=== PATIENT | male | born 1945 | race Caucasian/White ===

== ENCOUNTER 2023-01-12 23:35 | Inpatient (IN) | payer OTHER ==
[2023-01-12] MEDS ORDERED: RAPID SEQUENCE INTUBATION KIT NR ONE (23:45)
[2023-01-13] MEDS ORDERED: PROPOFOL 1,000,000 MCG/100 ML VIAL IVPUSH SCH (00:15)
[2023-01-13] MEDS ORDERED: PROPOFOL 20 ML ONE (00:15)
[2023-01-13] MEDS ORDERED: SODIUM CHLORIDE 0.9% 1000 ML INFUS.BAG IV ONE (00:22)
[2023-01-13] MEDS ORDERED: ETOMIDATE 20 MG/10 ML VIAL IVPUSH ONE (00:27)
[2023-01-13] MEDS ORDERED: ADENOSINE 6 MG/2 ML VIAL IVPUSH ONE ×2 (00:27)
[2023-01-13] MEDS ORDERED: ROCURONIUM BROMIDE 50 MG/5 ML VIAL IV ONE (00:28)
[2023-01-13] MEDS ORDERED: PROPOFOL 200 MG/20 ML VIAL IVPUSH ONE (00:28)
[2023-01-13 00:34] LABS: ARTERIAL BLD GAS O2 SATURATION 99.3 % (95-98); ARTERIAL BLOOD GAS BASE EXCESS -7.6 mmol/L (-2-2); ARTERIAL BLOOD GAS PO2 223.7 mmHg (80-100); ARTERIAL BLOOD GAS pH 7.206 (7.350-7.450)
[2023-01-13] MEDS ORDERED: VANCOMYCIN 1 GM in D5W (PRE-DOCKED) 1,000 MG/250 ML IVPB ONE (00:40)
[2023-01-13] MEDS ORDERED: PIPERACILLIN/TAZOB 4.5 GM 4.5 GM in DEXTROSE 5%-WATER 100 ML IVPB ONE (00:40)
[2023-01-13 00:50] LABS: BASO % 0.2 % (0-2.0); HEMATOCRIT 29.2 % (35.4-49); LYMPH % 4.5 % (8-40); MCH 24.9 pg (25.7-33.7); MCHC 30.9 g/dl (32.0-35.9); MEAN CELL VOLUME 80.7 fl (80-96); MEAN PLT VOLUME 8.6 fl (7.5-11.1); MONO % 8.5 % (3.8-10.2); NEUT % 86.8 % (42.8-82.8); PLATELET COUNT 333 10^3/uL (134-434); RBC 3.62 M/mm3 (4.00-5.60); RDW 16.3 % (11.9-15.9); WHITE BLOOD COUNT 22.3 K/mm3 (4.0-10.0)
[2023-01-13 00:57] LABS: INR 1.3 (0.83-1.09)
[2023-01-13 01:00] LABS: ACTIVATED PTT 30.2 SECONDS (25.2-36.5)
[2023-01-13 01:17] LABS: BLOOD UREA NITROGEN 54.6 mg/dL (7-18); CALCIUM 9.4 mg/dL (8.5-10.1)
[2023-01-13] MEDS ORDERED: PIPERACILLIN/TAZOB 4.5 GM 4.5 GM/100 ML BAG IVPB ONE (01:18)
[2023-01-13] MEDS ORDERED: VANCOMYCIN/WATER FOR INJ (PEG) 1,000 MG/200 ML BAG IVPB ONE (01:18)
[2023-01-13 01:20] LABS: CREATININE 1.4 mg/dL (0.55-1.3)
[2023-01-13 01:23] LABS: BILIRUBIN,TOTAL 0.5 mg/dL (0.2-1); TOT PROT 7.4 g/dl (6.4-8.2)
[2023-01-13 01:46] LABS: LACTIC ACID 10.7 mmol/L (0.4-2.0)
[2023-01-13 02:19] LABS: EPI CELLS 5 /uL (0-25.1); HYALINE CASTS 3 /uL (0-3.1); URINE APPEARANCE CLOUDY; URINE BACTERIA 1 /uL (0-1359); URINE BILIRUBIN NEGATIVE (NEGATIVE); URINE COLOR YELLOW; URINE GLUCOSE (UA) NEGATIVE (NEGATIVE); URINE KETONE TRACE (NEGATIVE); URINE LEUK ESTERASE NEGATIVE (NEGATIVE); URINE NITRITE NEGATIVE (NEGATIVE); URINE PROTEIN 1+ (NEGATIVE); URINE RBC 15 /uL (0-23.9); URINE UROBILINOGEN 0.2 mg/dL (0.2-1.0); URINE WBC 10 /uL (0-25.8)
[2023-01-13] MEDS ORDERED: SODIUM CHLORIDE 0.9% 500 ML INFUS.BAG IV ONE (02:50)
[2023-01-13] MEDS ORDERED: SODIUM CHLORIDE 2,313 ML IV ONE (02:51)
[2023-01-13] MEDS ORDERED: ALBUTEROL SO4 2.5/IPRATROPIUM 0.5 INH SOL 3 ML VIAL.NEB. NEB PRN (03:06)
[2023-01-13 03:40] LABS: ARTERIAL BLD GAS O2 SATURATION 97.4 % (95-98); ARTERIAL BLOOD GAS BASE EXCESS -1.2 mmol/L (-2-2); ARTERIAL BLOOD GAS PO2 95.6 mmHg (80-100); ARTERIAL BLOOD GAS pH 7.406 (7.350-7.450)
[2023-01-13 03:47] LABS: ALLENS TEST POSITIVE
[2023-01-13 03:50] LABS: VENT RATE 14
[2023-01-13] MEDS: INSULIN SLIDING SCALE (NOVOLOG) 1 VIAL SQ SCH ×4 (04:05→21:22)
[2023-01-13] MEDS ORDERED: NOREPINEPHRINE BITARTRATE/D5W 8 MG/250 ML BAG IVPB SCH (04:15)
[2023-01-13] MEDS ORDERED: NOREPINEPHRINE BITARTRATE 16,000 MCG in DEXTROSE 5%-WATER - 500 ML IVPB SCH (04:26)
[2023-01-13] MEDS ORDERED: NOREPINEPHRINE 0.9 % NACL 8 MG/250 ML BAG IVPB SCH (04:29)
[2023-01-13 04:36] LABS: OVALOCYTE 2+
[2023-01-13 05:54] LABS: HEMOGLOBIN 7.2 GM/dL (11.7-16.9); MCH 25.8 pg (25.7-33.7); MCHC 31.4 g/dl (32.0-35.9); MEAN CELL VOLUME 82.2 fl (80-96); PLATELET COUNT 242 10^3/uL (134-434); RBC 2.79 M/mm3 (4.00-5.60); RDW 16.3 % (11.9-15.9)
[2023-01-13 06:12] LABS: CHLORIDE 102 mmol/L (98-107); SODIUM 136 mmol/L (136-145)
[2023-01-13 06:15] LABS: ALBUMIN 1.6 g/dl (3.4-5.0); ANION GAP 11 MMOL/L (8-16); BLOOD UREA NITROGEN 49.6 mg/dL (7-18); CALCIUM 8.1 mg/dL (8.5-10.1); CO2 24 mmol/L (21-32); GLUCOSE,RANDOM 112 mg/dL (74-106); MAGNESIUM 2.3 mg/dL (1.8-2.4)
[2023-01-13 06:17] LABS: SGPT/ALT 22 U/L (13-61)
[2023-01-13 06:18] LABS: SGOT/AST 51 U/L (15-37)
[2023-01-13 06:19] LABS: TOT PROT 6.1 g/dl (6.4-8.2)
[2023-01-13 06:20] LABS: ALK PHOS 114 U/L (45-117)
[2023-01-13 06:23] LABS: BILIRUBIN,TOTAL 0.7 mg/dL (0.2-1)
[2023-01-13] MEDS: GABAPENTIN 250 MG/5 ML ORAL SOLUTION, 470 ML BOTTLE PO SCH ×3 (06:26→23:23)
[2023-01-13 06:47] LABS: LACTIC ACID 5.3 mmol/L (0.4-2.0)
[2023-01-13] MEDS ORDERED: SODIUM CHLORIDE 1,000 ML IV SCH (08:45)
[2023-01-13] MEDS: ENOXAPARIN NA (PORCINE) 40 MG/0.4 ML DISP.SYRIN SQ SCH (09:34)
[2023-01-13] MEDS: SODIUM HYPOCHLORITE 0.25%- 473 ML BULK BOTTLE TP SCH (09:35)
[2023-01-13] MEDS: COLLAGENASE CLOSTRIDIUM HIST. 30 GRAMS TUBE TP SCH (09:36)
[2023-01-13] MEDS ORDERED: PIPERACILLIN/TAZOB 3.375 GM 3.375 GM in DEXTROSE 5%-WATER - 50 ML IVPB SCH ×2 (10:00→18:00)
[2023-01-13] MEDS ORDERED: PNEUMOC 20-VAL CONJ-DIP CRM/PF 0.5 ML SYRINGE IM ONE (10:00)
[2023-01-13] MEDS ORDERED: SODIUM CHLORIDE 500 ML IV STA (10:39)
[2023-01-13] MEDS ORDERED: HYDROmorphone HCl 2 MG/ML VIAL IVPUSH ONE (10:40)
[2023-01-13 10:44] LABS: ANISOCYTOSIS 0; HELMET CELLS 0; HOWELL-JOLLY BODIES 0; MACROCYTOSIS 0; OVALOCYTE 0; ROULEAU 0; SICKELED CELLS 0; TARGET CELLS 0; TEAR DROP CELLS 0; TOXIC GRANULATION 0
[2023-01-13] MEDS: MUPIROCIN 2% TOPICAL OINTMENT FOR DECOLONIZATION NS SCH ×2 (11:00→21:20)
[2023-01-13] MEDS: MEROPENEM 1 GM in DEXTROSE 5%-WATER 100 ML IVPB SCH ×2 (13:18→21:20)
[2023-01-13 13:23] LABS: IRON SERUM 13 ug/dL (50-175); TOTAL IRON BINDING CAPACITY 136 ug/dL (250-450)
[2023-01-13] MEDS ORDERED: ACETAMINOPHEN 1000 MG/100 ML BAG IVPB ONE (15:13)
[2023-01-13] MEDS ORDERED: DEXTROSE 50%-WATER 25 GM/50 ML DISP.SYRIN IVPUSH ONE (16:08)
[2023-01-13] MEDS ORDERED: DEXTROSE 50%-WATER 25 GM/50 ML DISP.SYRIN ONE (16:12)
[2023-01-13] MEDS: DEXTROSE 5%-NORMAL SALINE 1,000 ML IV SCH (16:32)
[2023-01-13 16:58] LABS: HEMATOCRIT 22.7 % (35.4-49); MCH 24.7 pg (25.7-33.7); MEAN CELL VOLUME 79.7 fl (80-96); MEAN PLT VOLUME 8.5 fl (7.5-11.1); PLATELET COUNT 222 10^3/uL (134-434); RBC 2.85 M/mm3 (4.00-5.60); RDW 16.2 % (11.9-15.9); WHITE BLOOD COUNT 13.8 K/mm3 (4.0-10.0)
[2023-01-13] MEDS: ACETAMINOPHEN 325 MG TABLET (FP) PO PRN (21:21)
[2023-01-13] MEDS: oxyCODONE HCL 5 MG TABLET PO PRN (21:21)
[2023-01-13] MEDS ORDERED: CHLORHEXIDINE GLUCONATE 4% CLEANSER FOR DECOLONIZATION TP SCH (22:00)
[2023-01-14] MEDS: INSULIN SLIDING SCALE (NOVOLOG) 1 VIAL SQ SCH ×4 (06:26→22:46)
[2023-01-14] MEDS: MEROPENEM 1 GM in DEXTROSE 5%-WATER 100 ML IVPB SCH ×3 (06:27→22:34)
[2023-01-14] MEDS: GABAPENTIN 250 MG/5 ML ORAL SOLUTION, 470 ML BOTTLE PO SCH ×3 (06:27→22:42)
[2023-01-14 09:00] LABS: HEMATOCRIT 24.4 % (35.4-49); HEMOGLOBIN 7.8 GM/dL (11.7-16.9); MCH 25.9 pg (25.7-33.7); MEAN PLT VOLUME 9.4 fl (7.5-11.1); PLATELET COUNT 245 10^3/uL (134-434); RBC 3.01 M/mm3 (4.00-5.60); RDW 16.3 % (11.9-15.9); WHITE BLOOD COUNT 15.9 K/mm3 (4.0-10.0)
[2023-01-14 09:22] LABS: CALCIUM 8.5 mg/dL (8.5-10.1)
[2023-01-14 09:23] LABS: ALBUMIN 1.6 g/dl (3.4-5.0); BLOOD UREA NITROGEN 26.6 mg/dL (7-18)
[2023-01-14 09:25] LABS: INR 1.33 (0.83-1.09); PROTHROMBIN TIME (PATIENT) 15.4 SEC (9.7-13.0)
[2023-01-14 09:26] LABS: CREATININE 0.7 mg/dL (0.55-1.3); PHOSPHOROUS 1.9 mg/dL (2.5-4.9)
[2023-01-14 09:27] LABS: BILIRUBIN,TOTAL 0.3 mg/dL (0.2-1); LACTIC ACID 3.4 mmol/L (0.4-2.0); TOT PROT 6.3 g/dl (6.4-8.2)
[2023-01-14 09:29] LABS: ACTIVATED PTT 29.1 SECONDS (25.2-36.5)
[2023-01-14] MEDS: ACETAMINOPHEN 325 MG TABLET (FP) PO PRN (09:30)
[2023-01-14] MEDS: oxyCODONE HCL 5 MG TABLET PO PRN (09:33)
[2023-01-14] MEDS: ENOXAPARIN NA (PORCINE) 40 MG/0.4 ML DISP.SYRIN SQ SCH (09:34)
[2023-01-14] MEDS: COLLAGENASE CLOSTRIDIUM HIST. 30 GRAMS TUBE TP SCH (09:34)
[2023-01-14] MEDS: SODIUM HYPOCHLORITE 0.25%- 473 ML BULK BOTTLE TP SCH (09:35)
[2023-01-14] MEDS: MUPIROCIN 2% TOPICAL OINTMENT FOR DECOLONIZATION NS SCH (09:35)
[2023-01-14 09:45] LABS: ANISOCYTOSIS 1+; MACROCYTOSIS 1+
[2023-01-14] MEDS ORDERED: metoPROLOL SUCCINATE 25 MG TAB.SR.24H (FP) PO SCH (10:00)
[2023-01-14] MEDS ORDERED: POTASSIUM CHLORIDE TABS 20 MEQ TABLET.ER (FP) PO ONE (11:55)
[2023-01-14] MEDS: KCL 10 MEQ IVPB 10 MEQ/100 ML INFUS.BAG IVPB SCH ×2 (14:52→15:10)
[2023-01-14] MEDS: METOPROLOL TARTRATE 25 MG TABLET (FP) PO SCH ×2 (14:54→22:35)
[2023-01-14 15:25] VITALS: BMI 19.2
[2023-01-14] MEDS: DEXTROSE 5%-NORMAL SALINE 1,000 ML IV SCH (18:23)
[2023-01-15] MEDS: MEROPENEM 1 GM in DEXTROSE 5%-WATER 100 ML IVPB SCH ×3 (06:18→22:10)
[2023-01-15] MEDS: DEXTROSE 5%-NORMAL SALINE 1,000 ML IV SCH (06:20)
[2023-01-15] MEDS: INSULIN SLIDING SCALE (NOVOLOG) 1 VIAL SQ SCH ×4 (06:21→22:11)
[2023-01-15] MEDS: GABAPENTIN 250 MG/5 ML ORAL SOLUTION, 470 ML BOTTLE PO SCH ×3 (06:23→22:11)
[2023-01-15 06:32] LABS: HEMATOCRIT 22.7 % (35.4-49); HEMOGLOBIN 7.3 GM/dL (11.7-16.9); MCH 25.6 pg (25.7-33.7); MEAN CELL VOLUME 79.8 fl (80-96); MEAN PLT VOLUME 8.9 fl (7.5-11.1); PLATELET COUNT 250 10^3/uL (134-434); RBC 2.85 M/mm3 (4.00-5.60); RDW 16.2 % (11.9-15.9); WHITE BLOOD COUNT 14.5 K/mm3 (4.0-10.0)
[2023-01-15 06:52] LABS: ALBUMIN 1.5 g/dl (3.4-5.0); BLOOD UREA NITROGEN 15.4 mg/dL (7-18); CALCIUM 8.2 mg/dL (8.5-10.1); MAGNESIUM 1.7 mg/dL (1.8-2.4)
[2023-01-15 06:55] LABS: CREATININE 0.4 mg/dL (0.55-1.3)
[2023-01-15 06:57] LABS: BILIRUBIN,TOTAL 0.4 mg/dL (0.2-1); TOT PROT 5.9 g/dl (6.4-8.2)
[2023-01-15] MEDS: METOPROLOL TARTRATE 25 MG TABLET (FP) PO SCH ×2 (10:13→22:09)
[2023-01-15] MEDS: ENOXAPARIN NA (PORCINE) 40 MG/0.4 ML DISP.SYRIN SQ SCH (10:21)
[2023-01-15] MEDS: SODIUM HYPOCHLORITE 0.25%- 473 ML BULK BOTTLE TP SCH ×3 (10:21→19:05)
[2023-01-15] MEDS: COLLAGENASE CLOSTRIDIUM HIST. 30 GRAMS TUBE TP SCH ×3 (10:21→19:05)
[2023-01-15] MEDS ORDERED: MAGNESIUM SULF 50% (8.12 MEQ/2 ML-1 GM VIAL) IVPB ONE (12:00)
[2023-01-15] MEDS: KCL 10 MEQ IVPB 10 MEQ/100 ML INFUS.BAG IVPB SCH ×3 (12:19→15:48)
[2023-01-15] MEDS: AMINO ACIDS 4.25%/D5W 1,000 ML IV SCH (12:20)
[2023-01-15] MEDS ORDERED: FAT EMULSION/OLIVE/SOY (CLINOLIPID) 250 ML EMULSION IV SCH (22:00)
[2023-01-15] MEDS: FAT EMULSION/OLIVE/SOY/PHOSPHO 250 ML IV SCH (22:11)
[2023-01-16] MEDS: INSULIN SLIDING SCALE (NOVOLOG) 1 VIAL SQ SCH ×4 (01:15→21:57)
[2023-01-16] MEDS: GABAPENTIN 250 MG/5 ML ORAL SOLUTION, 470 ML BOTTLE PO SCH ×3 (05:35→21:57)
[2023-01-16] MEDS: MEROPENEM 1 GM in DEXTROSE 5%-WATER 100 ML IVPB SCH ×3 (05:35→21:57)
[2023-01-16 08:54] LABS: BASO % 0.3 % (0-2.0); EOS % 0.3 % (0-4.5); HEMATOCRIT 21.2 % (35.4-49); MCH 25.8 pg (25.7-33.7); MCHC 32.5 g/dl (32.0-35.9); MEAN CELL VOLUME 79.4 fl (80-96); MEAN PLT VOLUME 8.8 fl (7.5-11.1); MONO % 7.4 % (3.8-10.2); PLATELET COUNT 240 10^3/uL (134-434); RBC 2.67 M/mm3 (4.00-5.60); RDW 16.6 % (11.9-15.9); WHITE BLOOD COUNT 11.1 K/mm3 (4.0-10.0)
[2023-01-16 09:09] LABS: HEMOGLOBIN 6.9 GM/dL (11.7-16.9)
[2023-01-16 09:11] LABS: CHLORIDE 108 mmol/L (98-107); SODIUM 142 mmol/L (136-145)
[2023-01-16] MEDS: ENOXAPARIN NA (PORCINE) 40 MG/0.4 ML DISP.SYRIN SQ SCH (09:31)
[2023-01-16] MEDS: COLLAGENASE CLOSTRIDIUM HIST. 30 GRAMS TUBE TP SCH (09:32)
[2023-01-16] MEDS: METOPROLOL TARTRATE 25 MG TABLET (FP) PO SCH ×2 (09:32→21:57)
[2023-01-16 09:33] LABS: ALBUMIN 1.4 g/dl (3.4-5.0); BLOOD UREA NITROGEN 13.2 mg/dL (7-18); CO2 27 mmol/L (21-32); GLUCOSE,RANDOM 150 mg/dL (74-106)
[2023-01-16 09:37] LABS: CREATININE 0.4 mg/dL (0.55-1.3); SGOT/AST 22 U/L (15-37); SGPT/ALT 20 U/L (13-61)
[2023-01-16 09:38] LABS: BILIRUBIN,TOTAL 0.4 mg/dL (0.2-1); TOT PROT 5.7 g/dl (6.4-8.2)
[2023-01-16 09:39] LABS: ALK PHOS 128 U/L (45-117)
[2023-01-16 09:49] LABS: ANION GAP 7 MMOL/L (8-16)
[2023-01-16] MEDS: SODIUM HYPOCHLORITE 0.25%- 473 ML BULK BOTTLE TP SCH (10:29)
[2023-01-16] MEDS: AMINO ACIDS 4.25%/D5W 1,000 ML IV SCH (12:22)
[2023-01-16] MEDS: KCL 10 MEQ IVPB 10 MEQ/100 ML INFUS.BAG IVPB SCH ×3 (12:22→19:50)
[2023-01-16 21:36] LABS: BASO % 0.2 % (0-2.0); EOS % 0.5 % (0-4.5); HEMATOCRIT 25.4 % (35.4-49); HEMOGLOBIN 8.3 GM/dL (11.7-16.9); LYMPH % 7.4 % (8-40); MCH 25.6 pg (25.7-33.7); MCHC 32.5 g/dl (32.0-35.9); MEAN CELL VOLUME 78.9 fl (80-96); MEAN PLT VOLUME 8.6 fl (7.5-11.1); MONO % 9.7 % (3.8-10.2); NEUT % 82.2 % (42.8-82.8); PLATELET COUNT 212 10^3/uL (134-434); RBC 3.22 M/mm3 (4.00-5.60); RDW 16.1 % (11.9-15.9); WHITE BLOOD COUNT 10.2 K/mm3 (4.0-10.0)
[2023-01-16 21:47] LABS: BLOOD UREA NITROGEN 11.7 mg/dL (7-18); CALCIUM 7.6 mg/dL (8.5-10.1)
[2023-01-16 21:51] LABS: CREATININE 0.3 mg/dL (0.55-1.3)
[2023-01-16] MEDS: FAT EMULSION/OLIVE/SOY/PHOSPHO 250 ML IV SCH (21:56)
[2023-01-16 22:07] LABS: ANISOCYTOSIS 2+; MACROCYTOSIS 0; OVALOCYTE 1+; TARGET CELLS 1+
[2023-01-17] MEDS: MEROPENEM 1 GM in DEXTROSE 5%-WATER 100 ML IVPB SCH ×3 (05:33→22:35)
[2023-01-17] MEDS: GABAPENTIN 250 MG/5 ML ORAL SOLUTION, 470 ML BOTTLE PO SCH ×3 (05:34→22:35)
[2023-01-17] MEDS: INSULIN SLIDING SCALE (NOVOLOG) 1 VIAL SQ SCH ×4 (06:02→22:45)
[2023-01-17 10:35] LABS: HEMATOCRIT 25.8 % (35.4-49); HEMOGLOBIN 8.5 GM/dL (11.7-16.9); MCH 26.3 pg (25.7-33.7); MCHC 33.1 g/dl (32.0-35.9); MEAN CELL VOLUME 79.4 fl (80-96); MEAN PLT VOLUME 8.7 fl (7.5-11.1); PLATELET COUNT 206 10^3/uL (134-434); RBC 3.25 M/mm3 (4.00-5.60); WHITE BLOOD COUNT 9.5 K/mm3 (4.0-10.0)
[2023-01-17] MEDS: ENOXAPARIN NA (PORCINE) 40 MG/0.4 ML DISP.SYRIN SQ SCH (10:41)
[2023-01-17] MEDS: SODIUM HYPOCHLORITE 0.25%- 473 ML BULK BOTTLE TP SCH (10:42)
[2023-01-17] MEDS: COLLAGENASE CLOSTRIDIUM HIST. 30 GRAMS TUBE TP SCH (10:42)
[2023-01-17] MEDS: METOPROLOL TARTRATE 25 MG TABLET (FP) PO SCH ×2 (10:42→22:35)
[2023-01-17 10:47] LABS: CHLORIDE 103 mmol/L (98-107); SODIUM 135 mmol/L (136-145)
[2023-01-17 10:50] LABS: CALCIUM 7.4 mg/dL (8.5-10.1)
[2023-01-17 10:51] LABS: ALBUMIN 1.5 g/dl (3.4-5.0); BLOOD UREA NITROGEN 11.5 mg/dL (7-18); CO2 26 mmol/L (21-32); GLUCOSE,RANDOM 151 mg/dL (74-106); MAGNESIUM 1.2 mg/dL (1.8-2.4)
[2023-01-17 10:54] LABS: CREATININE 0.3 mg/dL (0.55-1.3); SGOT/AST 28 U/L (15-37); SGPT/ALT 18 U/L (13-61)
[2023-01-17 10:55] LABS: BILIRUBIN,TOTAL 0.9 mg/dL (0.2-1); TOT PROT 5.9 g/dl (6.4-8.2)
[2023-01-17 10:57] LABS: ALK PHOS 124 U/L (45-117)
[2023-01-17 10:58] LABS: ANION GAP 7 MMOL/L (8-16)
[2023-01-17] MEDS: KCL 10 MEQ IVPB 10 MEQ/100 ML INFUS.BAG IVPB SCH ×5 (11:50→16:37)
[2023-01-17] MEDS ORDERED: MAGNESIUM 2GM/50ML STERILE WATER IVPB IVPB ONE (12:00)
[2023-01-17 12:44] LABS: ANISOCYTOSIS 2+; MACROCYTOSIS 0; OVALOCYTE 2+; TEAR DROP CELLS 1+; TOXIC GRANULATION 1+
[2023-01-17] MEDS: AMINO ACIDS 4.25%/D5W 1,000 ML IV SCH ×2 (12:55→22:35)
[2023-01-17] MEDS: FAT EMULSION/OLIVE/SOY/PHOSPHO 250 ML IV SCH (22:57)
[2023-01-18] MEDS: GABAPENTIN 250 MG/5 ML ORAL SOLUTION, 470 ML BOTTLE PO SCH ×3 (06:43→21:02)
[2023-01-18] MEDS: INSULIN SLIDING SCALE (NOVOLOG) 1 VIAL SQ SCH ×4 (06:45→21:02)
[2023-01-18] MEDS: MEROPENEM 1 GM in DEXTROSE 5%-WATER 100 ML IVPB SCH ×3 (06:46→21:02)
[2023-01-18 08:03] LABS: BASO % 0.3 % (0-2.0); EOS % 1.6 % (0-4.5); HEMATOCRIT 27.4 % (35.4-49); LYMPH % 6.5 % (8-40); MCHC 32.9 g/dl (32.0-35.9); MEAN PLT VOLUME 8.3 fl (7.5-11.1); MONO % 6.4 % (3.8-10.2); NEUT % 85.2 % (42.8-82.8); PLATELET COUNT 214 10^3/uL (134-434); RBC 3.47 M/mm3 (4.00-5.60); RDW 16.1 % (11.9-15.9); WHITE BLOOD COUNT 11.6 K/mm3 (4.0-10.0)
[2023-01-18 08:16] LABS: CHLORIDE 99 mmol/L (98-107); SODIUM 134 mmol/L (136-145)
[2023-01-18 08:22] LABS: CALCIUM 7.3 mg/dL (8.5-10.1); GLUCOSE,RANDOM 202 mg/dL (74-106)
[2023-01-18 08:23] LABS: ALBUMIN 1.5 g/dl (3.4-5.0)
[2023-01-18 08:24] LABS: CO2 27 mmol/L (21-32)
[2023-01-18 08:26] LABS: CREATININE 0.3 mg/dL (0.55-1.3); SGOT/AST 26 U/L (15-37); SGPT/ALT 17 U/L (13-61)
[2023-01-18 08:27] LABS: ALK PHOS 113 U/L (45-117); BILIRUBIN,TOTAL 0.6 mg/dL (0.2-1)
[2023-01-18 08:41] LABS: ANION GAP 8 MMOL/L (8-16)
[2023-01-18] MEDS: SODIUM HYPOCHLORITE 0.25%- 473 ML BULK BOTTLE TP SCH (10:26)
[2023-01-18] MEDS: COLLAGENASE CLOSTRIDIUM HIST. 30 GRAMS TUBE TP SCH (10:26)
[2023-01-18] MEDS: ENOXAPARIN NA (PORCINE) 40 MG/0.4 ML DISP.SYRIN SQ SCH (10:26)
[2023-01-18] MEDS: METOPROLOL TARTRATE 25 MG TABLET (FP) PO SCH ×2 (10:26→21:02)
[2023-01-18] MEDS ORDERED: MAGNESIUM 2GM/50ML STERILE WATER IVPB IVPB ONE (11:30)
[2023-01-18] MEDS: KCL 10 MEQ IVPB 10 MEQ/100 ML INFUS.BAG IVPB SCH ×5 (12:04→15:46)
[2023-01-18] MEDS: ACETAMINOPHEN 1000 MG/100 ML BAG IVPB PRN (12:22)
[2023-01-18] MEDS: AMINO ACIDS 4.25%/D5W 1,000 ML IV SCH (16:25)
[2023-01-18] MEDS: FAT EMULSION/OLIVE/SOY/PHOSPHO 250 ML IV SCH (21:02)
[2023-01-19] MEDS: GABAPENTIN 250 MG/5 ML ORAL SOLUTION, 470 ML BOTTLE PO SCH ×3 (06:03→21:46)
[2023-01-19] MEDS: INSULIN SLIDING SCALE (NOVOLOG) 1 VIAL SQ SCH ×4 (06:03→22:41)
[2023-01-19] MEDS: MEROPENEM 1 GM in DEXTROSE 5%-WATER 100 ML IVPB SCH ×3 (06:04→22:26)
[2023-01-19 07:52] LABS: CHLORIDE 101 mmol/L (98-107); SODIUM 135 mmol/L (136-145)
[2023-01-19 08:02] LABS: CALCIUM 7.7 mg/dL (8.5-10.1)
[2023-01-19 08:03] LABS: ALBUMIN 1.6 g/dl (3.4-5.0); BLOOD UREA NITROGEN 8.5 mg/dL (7-18); CO2 26 mmol/L (21-32); GLUCOSE,RANDOM 182 mg/dL (74-106); MAGNESIUM 1.7 mg/dL (1.8-2.4)
[2023-01-19 08:06] LABS: CREATININE 0.3 mg/dL (0.55-1.3); SGOT/AST 21 U/L (15-37); SGPT/ALT 16 U/L (13-61)
[2023-01-19 08:08] LABS: BILIRUBIN,TOTAL 0.5 mg/dL (0.2-1); TOT PROT 6.2 g/dl (6.4-8.2)
[2023-01-19 08:09] LABS: ALK PHOS 116 U/L (45-117)
[2023-01-19 08:18] LABS: BASO % 0.1 % (0-2.0); HEMATOCRIT 28.3 % (35.4-49); HEMOGLOBIN 9.6 GM/dL (11.7-16.9); LYMPH % 4.9 % (8-40); MCH 25.8 pg (25.7-33.7); MCHC 33.8 g/dl (32.0-35.9); MEAN CELL VOLUME 76.4 fl (80-96); MEAN PLT VOLUME 8.6 fl (7.5-11.1); MONO % 5.4 % (3.8-10.2); NEUT % 88.6 % (42.8-82.8); PLATELET COUNT 238 10^3/uL (134-434); RDW 16.3 % (11.9-15.9); WHITE BLOOD COUNT 14.3 K/mm3 (4.0-10.0)
[2023-01-19 08:32] LABS: ANION GAP 8 MMOL/L (8-16)
[2023-01-19] MEDS: METOPROLOL TARTRATE 25 MG TABLET (FP) PO SCH ×2 (09:24→21:46)
[2023-01-19] MEDS: SODIUM HYPOCHLORITE 0.25%- 473 ML BULK BOTTLE TP SCH (09:24)
[2023-01-19] MEDS: COLLAGENASE CLOSTRIDIUM HIST. 30 GRAMS TUBE TP SCH (09:24)
[2023-01-19] MEDS: ENOXAPARIN NA (PORCINE) 40 MG/0.4 ML DISP.SYRIN SQ SCH (09:24)
[2023-01-19] MEDS: ACETAMINOPHEN 1000 MG/100 ML BAG IVPB PRN (09:43)
[2023-01-19] MEDS ORDERED: MAGNESIUM SULFATE IN WATER 2 GM/50 ML IVPB IVPB ONE (09:50)
[2023-01-19] MEDS: KCL 10 MEQ IVPB 10 MEQ/100 ML INFUS.BAG IVPB SCH ×3 (10:56→13:25)
[2023-01-19] MEDS: AMINO ACIDS 4.25%/D5W 1,000 ML IV SCH (12:12)
[2023-01-19] MEDS: FAT EMULSION/OLIVE/SOY/PHOSPHO 250 ML IV SCH (22:25)
[2023-01-20] MEDS: GABAPENTIN 250 MG/5 ML ORAL SOLUTION, 470 ML BOTTLE PO SCH ×2 (05:40→15:28)
[2023-01-20] MEDS: MEROPENEM 1 GM in DEXTROSE 5%-WATER 100 ML IVPB SCH ×3 (05:45→23:33)
[2023-01-20] MEDS: INSULIN SLIDING SCALE (NOVOLOG) 1 VIAL SQ SCH ×4 (06:17→23:32)
[2023-01-20 08:20] LABS: BASO % 0.2 % (0-2.0); EOS % 0.9 % (0-4.5); HEMATOCRIT 28.4 % (35.4-49); HEMOGLOBIN 9.4 GM/dL (11.7-16.9); LYMPH % 5.7 % (8-40); MCH 25.7 pg (25.7-33.7); MCHC 33.2 g/dl (32.0-35.9); MEAN CELL VOLUME 77.2 fl (80-96); MEAN PLT VOLUME 8.4 fl (7.5-11.1); MONO % 4.5 % (3.8-10.2); NEUT % 88.7 % (42.8-82.8); PLATELET COUNT 270 10^3/uL (134-434); RBC 3.68 M/mm3 (4.00-5.60); RDW 16.1 % (11.9-15.9); WHITE BLOOD COUNT 14.2 K/mm3 (4.0-10.0)
[2023-01-20 08:52] LABS: CHLORIDE 99 mmol/L (98-107); SODIUM 134 mmol/L (136-145)
[2023-01-20 09:12] LABS: BLOOD UREA NITROGEN 9.3 mg/dL (7-18); CALCIUM 7.5 mg/dL (8.5-10.1); CO2 26 mmol/L (21-32); MAGNESIUM 1.6 mg/dL (1.8-2.4)
[2023-01-20 09:13] LABS: GLUCOSE,RANDOM 184 mg/dL (74-106)
[2023-01-20 09:15] LABS: CREATININE 0.3 mg/dL (0.55-1.3)
[2023-01-20 09:21] LABS: ANION GAP 10 MMOL/L (8-16)
[2023-01-20] MEDS ORDERED: MAGNESIUM SULFATE IN WATER 2 GM/50 ML IVPB IVPB ONE (09:30)
[2023-01-20] MEDS: KCL 10 MEQ IVPB 10 MEQ/100 ML INFUS.BAG IVPB SCH ×4 (10:10→23:50)
[2023-01-20] MEDS: METOPROLOL TARTRATE 25 MG TABLET (FP) PO SCH ×2 (10:11→23:32)
[2023-01-20] MEDS: COLLAGENASE CLOSTRIDIUM HIST. 30 GRAMS TUBE TP SCH (10:12)
[2023-01-20] MEDS: SODIUM HYPOCHLORITE 0.25%- 473 ML BULK BOTTLE TP SCH (10:12)
[2023-01-20] MEDS: POTASSIUM CHLORIDE 20 MEQ in AMINO ACIDS 4.25%/D5W 1,000 ML IV SCH (11:37)
[2023-01-20] MEDS: ACETAMINOPHEN 325 MG TABLET (FP) PO PRN (12:20)
[2023-01-20] MEDS ORDERED: ACETAMINOPHEN 1000 MG/100 ML BAG IVPB PRN (17:25)
[2023-01-20 21:10] LABS: CALCIUM 7.9 mg/dL (8.5-10.1)
[2023-01-20 21:11] LABS: BLOOD UREA NITROGEN 10.7 mg/dL (7-18)
[2023-01-20 21:14] LABS: CREATININE 0.4 mg/dL (0.55-1.3)
[2023-01-20] MEDS ORDERED: GABAPENTIN 250 MG/5 ML ORAL SOLUTION, 470 ML BOTTLE PO SCH (22:00)
[2023-01-20] MEDS: FAT EMULSION/OLIVE/SOY/PHOSPHO 250 ML IV SCH (23:34)
[2023-01-21] MEDS: GABAPENTIN 400 MG CAPSULE PO SCH ×3 (06:06→21:50)
[2023-01-21] MEDS: MEROPENEM 1 GM in DEXTROSE 5%-WATER 100 ML IVPB SCH ×3 (06:07→22:05)
[2023-01-21] MEDS: INSULIN SLIDING SCALE (NOVOLOG) 1 VIAL SQ SCH ×4 (06:31→21:57)
[2023-01-21 08:43] LABS: CALCIUM 7.7 mg/dL (8.5-10.1)
[2023-01-21 08:44] LABS: BLOOD UREA NITROGEN 9.1 mg/dL (7-18); MAGNESIUM 1.7 mg/dL (1.8-2.4)
[2023-01-21 08:47] LABS: CREATININE 0.3 mg/dL (0.55-1.3)
[2023-01-21] MEDS: AMINO ACIDS/PROTEIN HYDROLYS 30 ML LIQUID.PKT PO SCH (08:48)
[2023-01-21] MEDS ORDERED: MAGNESIUM SULFATE IN WATER 2 GM/50 ML IVPB IVPB ONE (09:04)
[2023-01-21] MEDS: METOPROLOL TARTRATE 25 MG TABLET (FP) PO SCH ×2 (09:50→21:50)
[2023-01-21] MEDS: KCL 10 MEQ IVPB 10 MEQ/100 ML INFUS.BAG IVPB SCH ×3 (09:50→15:48)
[2023-01-21] MEDS: SODIUM HYPOCHLORITE 0.25%- 473 ML BULK BOTTLE TP SCH (09:53)
[2023-01-21] MEDS: COLLAGENASE CLOSTRIDIUM HIST. 30 GRAMS TUBE TP SCH (09:54)
[2023-01-21] MEDS: POTASSIUM CHLORIDE 20 MEQ in AMINO ACIDS 4.25%/D5W 1,000 ML IV SCH (16:52)
[2023-01-21] MEDS: FAT EMULSION/OLIVE/SOY/PHOSPHO 250 ML IV SCH (21:48)
[2023-01-22] MEDS: MEROPENEM 1 GM in DEXTROSE 5%-WATER 100 ML IVPB SCH ×3 (06:26→22:49)
[2023-01-22] MEDS: GABAPENTIN 400 MG CAPSULE PO SCH ×3 (06:26→21:36)
[2023-01-22] MEDS: INSULIN SLIDING SCALE (NOVOLOG) 1 VIAL SQ SCH ×4 (06:27→21:45)
[2023-01-22] MEDS: AMINO ACIDS/PROTEIN HYDROLYS 30 ML LIQUID.PKT PO SCH (07:56)
[2023-01-22 10:20] LABS: BASO % 0.3 % (0-2.0); EOS % 0.7 % (0-4.5); HEMATOCRIT 29.7 % (35.4-49); HEMOGLOBIN 9.7 GM/dL (11.7-16.9); LYMPH % 6.6 % (8-40); MCH 26.1 pg (25.7-33.7); MCHC 32.5 g/dl (32.0-35.9); MEAN CELL VOLUME 80.3 fl (80-96); MEAN PLT VOLUME 8.4 fl (7.5-11.1); MONO % 5.1 % (3.8-10.2); NEUT % 87.3 % (42.8-82.8); PLATELET COUNT 322 10^3/uL (134-434); RDW 16.6 % (11.9-15.9); WHITE BLOOD COUNT 16.1 K/mm3 (4.0-10.0)
[2023-01-22] MEDS: SODIUM HYPOCHLORITE 0.25%- 473 ML BULK BOTTLE TP SCH (10:22)
[2023-01-22] MEDS: METOPROLOL TARTRATE 25 MG TABLET (FP) PO SCH ×2 (10:22→21:36)
[2023-01-22] MEDS: COLLAGENASE CLOSTRIDIUM HIST. 30 GRAMS TUBE TP SCH (10:23)
[2023-01-22] MEDS: ACETAMINOPHEN 325 MG TABLET (FP) PO PRN ×2 (10:33→21:36)
[2023-01-22 11:06] LABS: BLOOD UREA NITROGEN 15.4 mg/dL (7-18)
[2023-01-22 11:09] LABS: CREATININE 0.3 mg/dL (0.55-1.3)
[2023-01-22 11:11] LABS: MAGNESIUM 1.7 mg/dL (1.8-2.4)
[2023-01-22 11:12] LABS: CALCIUM 7.9 mg/dL (8.5-10.1)
[2023-01-22] MEDS: POTASSIUM CHLORIDE 20 MEQ in AMINO ACIDS 4.25%/D5W 1,000 ML IV SCH (15:21)
[2023-01-22] MEDS: KCL 10 MEQ IVPB 10 MEQ/100 ML INFUS.BAG IVPB SCH (19:40)
[2023-01-22] MEDS: FAT EMULSION/OLIVE/SOY/PHOSPHO 250 ML IV SCH (21:37)
[2023-01-23] MEDS: GABAPENTIN 400 MG CAPSULE PO SCH ×3 (06:16→22:03)
[2023-01-23] MEDS: MEROPENEM 1 GM in DEXTROSE 5%-WATER 100 ML IVPB SCH ×3 (06:16→22:02)
[2023-01-23] MEDS: INSULIN SLIDING SCALE (NOVOLOG) 1 VIAL SQ SCH ×4 (06:22→22:26)
[2023-01-23 08:28] LABS: BASO % 0.6 % (0-2.0); EOS % 0.7 % (0-4.5); HEMATOCRIT 28.3 % (35.4-49); HEMOGLOBIN 9.4 GM/dL (11.7-16.9); LYMPH % 6.2 % (8-40); MCHC 33.4 g/dl (32.0-35.9); MEAN PLT VOLUME 7.8 fl (7.5-11.1); MONO % 5.8 % (3.8-10.2); NEUT % 86.7 % (42.8-82.8); PLATELET COUNT 314 10^3/uL (134-434); RBC 3.62 M/mm3 (4.00-5.60); RDW 16.9 % (11.9-15.9); WHITE BLOOD COUNT 13.8 K/mm3 (4.0-10.0)
[2023-01-23] MEDS: METOPROLOL TARTRATE 25 MG TABLET (FP) PO SCH ×2 (09:14→22:03)
[2023-01-23] MEDS: AMINO ACIDS/PROTEIN HYDROLYS 30 ML LIQUID.PKT PO SCH (09:14)
[2023-01-23] MEDS: SODIUM HYPOCHLORITE 0.25%- 473 ML BULK BOTTLE TP SCH (09:15)
[2023-01-23] MEDS: COLLAGENASE CLOSTRIDIUM HIST. 30 GRAMS TUBE TP SCH (09:15)
[2023-01-23] MEDS: POTASSIUM CHLORIDE 20 MEQ in AMINO ACIDS 4.25%/D5W 1,000 ML IV SCH ×2 (11:08→16:54)
[2023-01-23] MEDS: ACETAMINOPHEN 325 MG TABLET (FP) PO PRN (18:52)
[2023-01-23] MEDS: FAT EMULSION/OLIVE/SOY/PHOSPHO 250 ML IV SCH (22:08)
[2023-01-24] MEDS: GABAPENTIN 400 MG CAPSULE PO SCH ×3 (05:58→22:28)
[2023-01-24] MEDS: INSULIN SLIDING SCALE (NOVOLOG) 1 VIAL SQ SCH ×4 (05:59→22:29)
[2023-01-24] MEDS: MEROPENEM 1 GM in DEXTROSE 5%-WATER 100 ML IVPB SCH ×2 (05:59→14:18)
[2023-01-24] MEDS: METOPROLOL TARTRATE 25 MG TABLET (FP) PO SCH ×2 (09:23→22:28)
[2023-01-24] MEDS: COLLAGENASE CLOSTRIDIUM HIST. 30 GRAMS TUBE TP SCH (09:24)
[2023-01-24] MEDS: AMINO ACIDS/PROTEIN HYDROLYS 30 ML LIQUID.PKT PO SCH (09:24)
[2023-01-24] MEDS: SODIUM HYPOCHLORITE 0.25%- 473 ML BULK BOTTLE TP SCH (09:24)
[2023-01-24] MEDS: POTASSIUM CHLORIDE 20 MEQ in AMINO ACIDS 4.25%/D5W 1,000 ML IV SCH ×3 (11:02→18:03)
[2023-01-24 11:34] LABS: HEMATOCRIT 28.8 % (35.4-49); HEMOGLOBIN 9.6 GM/dL (11.7-16.9); MCH 25.9 pg (25.7-33.7); MCHC 33.4 g/dl (32.0-35.9); MEAN CELL VOLUME 77.7 fl (80-96); MEAN PLT VOLUME 7.8 fl (7.5-11.1); PLATELET COUNT 336 10^3/uL (134-434); RDW 17.3 % (11.9-15.9); WHITE BLOOD COUNT 12.3 K/mm3 (4.0-10.0)
[2023-01-24] MEDS: ENOXAPARIN NA (PORCINE) 40 MG/0.4 ML DISP.SYRIN SQ SCH (11:35)
[2023-01-24 11:55] LABS: BLOOD UREA NITROGEN 16.3 mg/dL (7-18); CALCIUM 8.5 mg/dL (8.5-10.1); MAGNESIUM 1.7 mg/dL (1.8-2.4)
[2023-01-24 11:59] LABS: CREATININE 0.4 mg/dL (0.55-1.3)
[2023-01-24] MEDS: ACETAMINOPHEN 325 MG TABLET (FP) PO PRN (17:14)
[2023-01-24] MEDS ORDERED: MAGNESIUM SULFATE IN WATER 2 GM/50 ML IVPB IVPB ONE (17:41)
[2023-01-24] MEDS: FAT EMULSION/OLIVE/SOY/PHOSPHO 250 ML IV SCH (22:41)
[2023-01-25] MEDS: GABAPENTIN 400 MG CAPSULE PO SCH ×3 (06:38→22:56)
[2023-01-25] MEDS: INSULIN SLIDING SCALE (NOVOLOG) 1 VIAL SQ SCH ×4 (06:39→22:56)
[2023-01-25] MEDS: ACETAMINOPHEN 325 MG TABLET (FP) PO PRN (08:53)
[2023-01-25] MEDS: AMINO ACIDS/PROTEIN HYDROLYS 30 ML LIQUID.PKT PO SCH (08:54)
[2023-01-25] MEDS: ENOXAPARIN NA (PORCINE) 40 MG/0.4 ML DISP.SYRIN SQ SCH (09:59)
[2023-01-25] MEDS: METOPROLOL TARTRATE 25 MG TABLET (FP) PO SCH ×2 (09:59→22:56)
[2023-01-25] MEDS: SODIUM HYPOCHLORITE 0.25%- 473 ML BULK BOTTLE TP SCH (10:00)
[2023-01-25] MEDS: COLLAGENASE CLOSTRIDIUM HIST. 30 GRAMS TUBE TP SCH (10:00)
[2023-01-25] MEDS: POTASSIUM CHLORIDE 20 MEQ in AMINO ACIDS 4.25%/D5W 1,000 ML IV SCH (14:37)
[2023-01-25] MEDS: FAT EMULSION/OLIVE/SOY/PHOSPHO 250 ML IV SCH (22:54)
[2023-01-26 01:21] VITALS: RESP 20
[2023-01-26] MEDS: INSULIN SLIDING SCALE (NOVOLOG) 1 VIAL SQ SCH ×2 (06:16→11:00)
[2023-01-26] MEDS: GABAPENTIN 400 MG CAPSULE PO SCH (06:16)
[2023-01-26 08:32] VITALS: BP 133/83; PULSE 114; TEMP 97.7
[2023-01-26] MEDS: ENOXAPARIN NA (PORCINE) 40 MG/0.4 ML DISP.SYRIN SQ SCH (09:31)
[2023-01-26] MEDS: METOPROLOL TARTRATE 25 MG TABLET (FP) PO SCH (09:31)
[2023-01-26] MEDS: AMINO ACIDS/PROTEIN HYDROLYS 30 ML LIQUID.PKT PO SCH (09:32)
[2023-01-26] MEDS: POTASSIUM CHLORIDE 20 MEQ in AMINO ACIDS 4.25%/D5W 1,000 ML IV SCH (13:43)
== END 2023-01-26 12:40 | disposition home or self-care (01) | DRG 871 ==
LOC: JER 23:35 → JERBED 01-13 00:21 → JICU 01-13 02:43 → J4S 01-14 19:12
PROVIDERS: ADMIT Internal Medicine Pulmonary Disease; ATTEND Internal Medicine
PROC: 0BH17EZ Insertion of Endotracheal Airway into Trachea, Via Natural or Artificial Opening (ICD-10-PCS; principal; 2023-01-16)
PROC: 5A1945Z Respiratory Ventilation, 24-96 Consecutive Hours (ICD-10-PCS; 2023-01-16)
PROC: 30233N1 Transfusion of Nonautologous Red Blood Cells into Peripheral Vein, Percutaneous Approach (ICD-10-PCS; 2023-01-16)
DX: A41.89 Other specified sepsis (principal); G93.41 Metabolic encephalopathy; J18.9 Pneumonia, unspecified organism; R65.21 Severe sepsis with septic shock; J96.01 Acute respiratory failure with hypoxia; R53.2 Functional quadriplegia; E87.20 Acidosis, unspecified; I47.1 Supraventricular tachycardia; R64 Cachexia; E46 Unspecified protein-calorie malnutrition; Z68.1 Body mass index [BMI] 19.9 or less, adult; N17.9 Acute kidney failure, unspecified; J90 Pleural effusion, not elsewhere classified; I24.8 Other forms of acute ischemic heart disease; L89.150 Pressure ulcer of sacral region, unstageable; E87.6 Hypokalemia; G35 Multiple sclerosis; I25.10 Atherosclerotic heart disease of native coronary artery without angina pectoris; E83.42 Hypomagnesemia; E11.9 Type 2 diabetes mellitus without complications; E78.5 Hyperlipidemia, unspecified; E11.42 Type 2 diabetes mellitus with diabetic polyneuropathy; D72.829 Elevated white blood cell count, unspecified; B97.4 Respiratory syncytial virus as the cause of diseases classified elsewhere; D64.9 Anemia, unspecified
CPT/HCPCS: 0241U-QW; 31500; 36415; 36430; 36511; 36600; 70450-TC; 71045-TC-FY; 71250-TC; 74176-TC; 74230-TC-FY; 80048; 80053; 81003; 82272; 82550; 82553; 82570; 82607; 82728; 82746; 82803; 82962; 83540; 83550; 83605; 83735; 84100; 84300; 84484; 85025; 85027; 85610; 85730; 86850; 86900; 86901; 86922; 87040; 87070; 87077; 87086; 87186; 87205; 87899; 92611-GN; 93005; 93010; 93306-TC; 94002; 94761; 97116-GP; 99291; 99292; C9803-CS; P9021; P9038; U0003; U0005